=== PATIENT | female | born 1965 | race Caucasian/White ===

== ENCOUNTER 2017-09-16 20:26 | Emergency (ER) | payer OTHER ==
--- NOTE | 2017-09-16 21:24 | RADIOLOGY REPORT (SQ) ---
EXAM DESCRIPTION: CHEST SINGLE VIEW COMPLETED DATE/TIME: 09/16/2017 8:58 pm REASON FOR STUDY: cough COMPARISON: 07/02/2015 NUMBER OF VIEWS: One view. TECHNIQUE: Single frontal radiographic view of the chest acquired. LIMITATIONS: None. FINDINGS: LUNGS AND PLEURA: No opacities, masses or pneumothorax. No pleural effusion. MEDIASTINUM AND HILAR STRUCTURES: No masses. Contour normal. HEART AND VASCULAR STRUCTURES: Heart enlarged without failure. Normal vasculature. Aortic valve rep lacement. BONES: Sternal wires. HARDWARE: None in the chest. OTHER: No other significant finding. IMPRESSION: HEART ENLARGED WITHOUT FAILURE. NO OTHER SIGNIFICANT RADIOGRAPHIC FINDING IN THE CHEST. TECHNICAL DOCUMENTATION: JOB ID: [id number] [employer]- All Rights Reserved
--- NOTE | 2017-09-16 21:37 | ER Document Report ---
ED General - General Chief Complaint: Altered Mental Status Stated Complaint: ALTERED MENTAL STATUS Time Seen by Provider: 09/16/17 20:30 Notes: Patient is a 52-year-old female with a past medical history of insulin- dependent type 2 diabetes who presents with altered mental status and hypoglycemia. Apparently per family who were on scene with the patient she was acting confused. EMS was contacted and they found her blood sugar to be 55. She was given oral glucose solution and had resolution of her altered mental status. At time of arrival patient states she still feels somewhat tired but overall much better than before. She states she thinks she has been eating normally throughout the day today. She is uncertain whether or not she has had hypoglycemic episodes in the past. She notes that she has had a mild, nonproductive cough for the last 2-3 days but states that this has not been particularly bothersome. She denies any dysuria, abdominal pain, chest pain or shortness of breath. She has been taking all insulin as directed. TRAVEL OUTSIDE OF THE [place] IN LAST 30 DAYS: No - Related Data Allergies/Adverse Reactions: Penicillins Allergy (Verified 02/12/16 18:59) Past Medical History - General Information source: Patient - Social History Smoking Status: Never Smoker Frequency of alcohol use: None Drug Abuse: None Lives with: Family Family History: Reviewed & Not Pertinent, DM - Father was diabetic Patient has suicidal ideation: No Patient has homicidal ideation: No - Past Medical History Cardiac Medical History: Reports: Hx Hypertension Endocrine Medical History: Reports: Hx Diabetes Mellitus Type 2 - New diagnosis less than 1-week-old Renal/ Medical History: Denies: Hx Peritoneal Dialysis Review of Systems - Review of Systems Notes: Constitutional: Negative for fever. HENT: Negative for sore throat. Eyes: Negative for visual changes. Cardiovascular: Negative for chest pain. Respiratory: Negative for shortness of breath. Gastrointestinal: Negative for abdominal pain, vomiting or diarrhea. Genitourinary: Negative for dysuria. Musculoskeletal: Negative for back pain. Skin: Negative for rash. Neurological: Negative for headaches, weakness or numbness. 10 point ROS negative except as marked above and in HPI. Physical Exam - Vital signs Vitals: Pulse Resp BP Pulse Ox 54 L 18 129/77 H 100 09/16/17 20:39 09/16/17 20:39 09/16/17 20:39 09/16/17 20:39 Interpretation: Bradycardic Notes: PHYSICAL EXAMINATION: GENERAL: Well-appearing, well-nourished and in no acute distress. HEAD: Atraumatic, normocephalic. EYES: Pupils equal round and reactive to light, extraocular movements intact, sclera anicteric, conjunctiva are normal. ENT: nares patent, oropharynx clear without exudates. Moderately dry mucous membranes. NECK: Normal range of motion, supple without lymphadenopathy LUNGS: Breath sounds clear to auscultation bilaterally and equal. No wheezes rales or rhonchi. HEART: Regular bradycardia without murmurs ABDOMEN: Soft, nontender, normoactive bowel sounds. No guarding, no rebound. No masses appreciated. EXTREMITIES: Normal range of motion, no pitting or edema. No cyanosis. NEUROLOGICAL: No focal neurological deficits. Moves all extremities spontaneously and on command. PSYCH: Normal mood, normal affect. SKIN: Warm, Dry, normal turgor, no rashes or lesions noted. Course - Re-evaluation Re-evalutation: 09/16/17 21:35 Patient presents with some lethargy and confusion now resolved after receiving oral glucose in route after her initial blood sugar was 55. Patient denies any complaints at time of my assessment other than that she has had a cough for the past several days. She is otherwise well in appearance, no acute distress. Physical examination unremarkable. EKG shows sinus bradycardia which patient has a history. Will obtain basic metabolic panel, urinalysis and chest x-ray to evaluate for any etiology of acute hypoglycemia. Will also obtain a troponin as hypoglycemia can be triggered by myocardial infarction. If all these labs are unremarkable and patient continues to be well in appearance will plan for discharge 09/16/17 23:26 Labs unremarkable. Patient has remained asymptomatic. Tolerated oral intake without difficulty. At this time will discharge with return precautions and follow-up recommendations. Verbal discharge instructions given a the bedside and opportunity for questions given. Medication warnings reviewed. Patient is in agreement with this plan and has verbalized understanding of return precautions and the need for primary care follow-up in the next 24-72 hours. - Vital Signs Vital signs: Temp Pulse Resp BP Pulse Ox 97.6 F 78 16 122/75 98 09/16/17 23:39 09/16/17 23:54 09/16/17 23:54 09/16/17 23:54 09/16/17 23:54 - Laboratory Result Diagrams: 09/16/17 21:26 Laboratory results interpreted by me: 09/16/17 09/16/17 21:26 22:42 Glucose 186 H Urine Glucose (UA) 50 H Urine Urobilinogen 2.0 H - Diagnostic Test Radiology reviewed: Image reviewed, Reports reviewed Radiology results interpreted by me: 09/17/17 01:30 Chest x-ray: No acute infiltrate or pneumothorax - EKG Interpretation by Me Additional EKG results interpreted by me: 09/17/17 01:30 Sinus bradycardia. Rate 50. No ST elevations or depressions. QTC is 475. Discharge - Discharge Clinical Impression: Hypoglycemia associated with type 2 diabetes mellitus Altered mental status Qualifiers: Altered mental status type: transient alteration of awareness Qualified Code(s) : R40.4 - Transient alteration of awareness Condition: Good Disposition: HOME, SELF-CARE Additional Instructions: Please return to the emergency room immediately if you experience any concerning symptoms including high fevers, severe headache, chest pain, difficulty breathing, abdominal pain, slurred speech, numbness or weakness in your arms or legs, or any other symptom that concerns you.
[2017-09-16 21:52] LABS: BLOOD UREA NITROGEN 12 mg/dL (7-20); CALCIUM 8.8 mg/dL (8.4-10.2); CREATININE RESULT 0.56 mg/dL (0.52-1.25); GLUCOSE 186 mg/dL (75-110)
[2017-09-16 21:53] LABS: ANION GAP 9 (5-19); CARBON DIOXIDE 25 mmol/L (22-30); CHLORIDE 105 mmol/L (98-107); POTASSIUM 3.8 mmol/L (3.6-5.0); SODIUM 139.1 mmol/L (137-145)
[2017-09-16 23:12] LABS: APPEARANCE,URINE CLEAR; BILIRUBIN,URINE NEGATIVE (NEGATIVE); GLUCOSE, URINE 50 mg/dL (NEGATIVE); KETONES,URINE NEGATIVE (NEGATIVE); LEUKOCYTE ESTERASE,URINE NEGATIVE (NEGATIVE); NITRITE,URINE NEGATIVE (NEGATIVE); PROTEIN,URINE NEGATIVE (NEGATIVE); URINE SPECIFIC GRAVITY 1.016
--- NOTE | 2017-09-16 23:20 | EKG REPORT ---
SEVERITY:- BORDERLINE ECG - SINUS BRADYCARDIA BORDERLINE R WAVE PROGRESSION, ANTERIOR LEADS BORDERLINE T ABNORMALITIES, ANTERIOR LEADS : Confirmed by: Kana Sanchez MD 16-Sep-2017 23:18:42
[2017-09-16 23:55] VITALS: BP 122/75
== END 2017-09-16 23:54 | disposition home or self-care (01) ==
LOC: ER 20:26
DX: E11.649 Type 2 diabetes mellitus with hypoglycemia without coma (principal); R41.82 Altered mental status, unspecified
CPT/HCPCS: 36415; 71010; 80048; 81001; 84484; 93005; 93010; 99285

== ENCOUNTER → 2018-06-10 | Outpatient (CLI) | payer OTHER ==
--- NOTE | 2018-06-10 10:19 | WOMENS IMAGING REPORT ---
EXAM DESCRIPTION: BILAT SCREENING MAMMO W/CAD COMPLETED DATE/TIME: 06/10/2018 9:14 am REASON FOR STUDY: ROUTINE SCREENING MAMMOGRAM Z12.31Z12.31 ENCNTR SCREEN MAMMOGRAM FOR MALIGNANT NE OPLASM OF PEPE COMPARISON: 2011, [id number] TECHNIQUE: Standard craniocaudal and mediolateral oblique views of each breast recorded using digita l acquisition. LIMITATIONS: None. FINDINGS: RIGHT BREAST MASSES: No suspicious masses. CALCIFICATIONS: Clustered calcifications upper inner quadrant about 5 cm deep to the nipple. ARCHITECTURAL DISTORTION: None. DEVELOPING DENSITY: None. ASYMMETRY: None noted. OTHER: No other significant findings. LEFT BREAST MASSES: No suspicious masses. CALCIFICATIONS: No new or suspicious calcifications. ARCHITECTURAL DISTORTION: None. DEVELOPING DENSITY: None. ASYMMETRY: None noted. OTHER: No other significant findings. Read with the assistance of CAD. .[facility] - R2 Cenova Version 1.3 .[facility] Imaging - R2 Cenova Version 1.3 .[facility] Imaging - R2 Cenova Version 2.4 .[facility] - R2 Cenova Version 2.4 .[facility] - R2 Duct Maker Version 9.2 IMPRESSION: Calcifications right breast. BREAST DENSITY: b. There are scattered areas of fibroglandular density. BIRAD: 0 Incomplete: Needs Additional Imaging Evaluation and/or prior Mammograms for Comparison. RECOMMENDATION: RECOMMENDED FOLLOW-UP: True lateral and magnification views right breast. The patient will be contacted for additional imaging. COMMENT: The patient has been notified of the results by letter per SA requirements. Additional no tification policies are in place for contacting patient with suspicious or incomplete findings. Quality ID #[id number]: The [employer] recommends an annual screening mammogram for women aged 40 years or over. This facility utilizes a reminder system to ensure that all patients receive reminder letters, and/or direct phone calls for appointments. This includes reminders for routine scr eening mammograms, diagnostic mammograms, or other Breast Imaging Interventions when appropriate. Th is patient will be placed in the appropriate reminder system. The [employer] (ACR) has developed recommendations for screening MRI of the breast s in certain patient populations, to be used in conjunction with mammography. Breast MRI surveillanc e may be appropriate for women with more than 20% lifetime risk of developing breast cancer as deter mined by genetic testing, significant family history of the disease, or history of mantle radiation f or Hodgkins Disease. ACR Practice Guidelines 2008. TECHNICAL DOCUMENTATION: FINDING NUMBER: (1) ASSESSMENT: (1) JOB ID: [id number] [employer]- All Rights Reserved Reading location - IP/workstation name: [facility]-[email or web address]
== END ==
LOC: WI 08:57
PROVIDERS: ATTEND Nurse Practitioner Family
DX: Z12.31 Encounter for screening mammogram for malignant neoplasm of breast (principal); R92.0 Mammographic microcalcification found on diagnostic imaging of breast
CPT/HCPCS: 77067

== ENCOUNTER → 2018-06-28 | Outpatient (CLI) | payer OTHER ==
--- NOTE | 2018-06-28 14:38 | WOMENS IMAGING REPORT ---
EXAM DESCRIPTION: RIGHT DIAGNOSTIC MAMMO W/CAD COMPLETED DATE/TIME: 06/28/2018 9:04 am REASON FOR STUDY: RT BREAST CALCS R92.0 R92.0 MAMMOGRAPHIC MICROCALCIFICATION FOUND ON DX IMAGING O F COMPARISON: Multiple since 2011 TECHNIQUE: Compression magnification craniocaudal and 90 mediolateral images of the breast recorded with digital acquisition. Right breast 90 mediolateral view LIMITATIONS: None. FINDINGS: BREAST: Right breast MASSES: No suspicious masses. CALCIFICATIONS: 5 cm from the nipple in the upper inner quadrant, 2 to 3 o'clock position right breas t there are calcifications variable in size shape and density which require further evaluation with s tereotactic biopsy, post biopsy clip placement with immediate follow-up two-view mammogram ARCHITECTURAL DISTORTION: None. DEVELOPING DENSITY: None. ASYMMETRY: None noted. OTHER: No other significant findings. Read with the assistance of CAD. .[facility] - R2 Cenova Version 1.3 .[facility] Imaging - R2 Cenova Version 1.3 .[facility] Imaging - R2 Cenova Version 2.4 .[facility] - R2 Cenova Version 2.4 .[facility] - R2 [employer]Th Grade [employer] Teacher Version 9.2 IMPRESSION: Clustered pleomorphic calcifications right breast upper inner quadrant 2 to 3 o'clock po sition 5 cm from the nipple. Stereotactic biopsy recommended BREAST DENSITY: b. There are scattered areas of fibroglandular density. BIRAD: 4 Suspicious. Biopsy should be considered. RECOMMENDATION: RECOMMENDED FOLLOW UP: Right breast stereotactic biopsy for microcalcifications, wit h post biopsy clip placement and immediate follow-up two-view mammogram SPECIFIC INTERVENTION/IMAGING/CONSULTATION RECOMMENDED:Right breast stereotactic biopsy for microcalc ifications COMMUNICATION:Patient notified by letter, I did not have the opportunity to discuss these findings wi th the patient at the time of service COMMENT: The patient has been notified of the results by letter per SA requirements. Additional no tification policies are in place for contacting patient with suspicious or incomplete findings. Quality ID #[id number]: The [employer] recommends an annual screening mammogram for women aged 40 years or over. This facility utilizes a reminder system to ensure that all patients receive reminder letters, and/or direct phone calls for appointments. This includes reminders for routine scr eening mammograms, diagnostic mammograms, or other Breast Imaging Interventions when appropriate. Th is patient will be placed in the appropriate reminder system. The [employer] (ACR) has developed recommendations for screening MRI of the breast s in certain patient populations, to be used in conjunction with mammography. Breast MRI surveillanc e may be appropriate for women with more than 20% lifetime risk of developing breast cancer as deter mined by genetic testing, significant family history of the disease, or history of mantle radiation f or Hodgkins Disease. ACR Practice Guidelines 2008. TECHNICAL DOCUMENTATION: FINDING NUMBER: (1) ASSESSMENT: (1) JOB ID: [id number] [employer]- All Rights Reserved Reading location - IP/workstation name: [facility]-RR
== END ==
LOC: WI 08:53
PROVIDERS: ATTEND Nurse Practitioner Family
DX: R92.0 Mammographic microcalcification found on diagnostic imaging of breast (principal)

== ENCOUNTER → 2018-07-26 | Day surgery (SDC) | payer OTHER ==
[~2018-07-26] MED LIST: LIDOCAINE 1%/EPINEPHRINE INJ 20 ML VIAL ONE
--- NOTE | 2018-07-29 09:19 | RADIOLOGY REPORT (SQ) ---
EXAM DESCRIPTION: STEREO BREAST BX; RIGHT DIG DX MAMMO NO CHG COMPLETED DATE/TIME: 07/26/2018 12:31 pm; 07/26/2018 12:32 pm REASON FOR STUDY: R92.0 MAMMOGRAPHIC MICROCALCIFICATION FOUND ON DIAGNOSTIC IMAGING OF BREAST; RT BR EAST POST OP R92.0 MAMMOGRAPHIC MICROCALCIFICATION FOUND ON DX IMAGING OF COMPARISON: 06/28/2018 and 06/10/2018. TECHNIQUE: Vacuum-assisted stereotactic-guided biopsy of the lesion in the right breast. Serial prog ress stereotactic and single digital images acquired. PROCEDURE: The procedure was discussed with the patient, including possible complications such as bleeding, infection, nondiagnostic sample or possible findings such as atypical ductal hyperplasia wh ich would require additional surgery. Possible clip placement was explained. The patient agreed t o the procedure. The patient was placed prone on the stereotactic table. The lesion in the breast was localized ster eotactically. The skin of the breast was prepped in sterile fashion. Superficial and deep local an esthesia was provided. A small incision was made in the skin and the biopsy probe was advanced to t he target. Using the vacuum-assisted core biopsy device, multiple core specimens were obtained. Continuous low dose infusion of local anesthesia was used during the procedure. A specimen radiograph was obtained. The radiograph demonstrated calcifications in the biopsy tissue. Using [id number] technique an hourglass clip was deployed at the biopsy site. Mammograph ic image confirmed presence of the clip. The probe was then removed and hemostasis obtained with m anual compression. A compression bandage was applied. Postoperative instructions were explained to the patient. POST-PROCEDURE TWO VIEW DIGITAL MAMMOGRAM: An additional two view mamm[facility]. Marker clip is present at the biopsy site. LIMITATIONS: None. FINDINGS: PATHOLOGY: Fragments of fibroadenoma with sclerosis and calcifications. Negative for atyp ia or malignancy. CONCORDANT: Yes. POST PROCEDURE MAMMOGRAMS FOR MARKER PLACEMENT: Yes IMPRESSION: SUCCESSFUL STEREOTACTIC-GUIDED BIOPSY OF THE LESION IN THE RIGHT BREAST. BIOPSY RESULT S ARE CONCORDANT WITH IMAGING FINDINGS. FOLLOW-UP: PATIENT CAN RESUME ROUTINE SCREENING SCHEDULE DETERMINED BY HER AND HER PHP. NOTIFICATION: AN ATTEMPT WAS MADE TO CONTACT THE PATIENT BUT THE PHONE CALL WENT TO VOICEM[employer]. THE [facility] PHP HAS BEEN NOTIFIED OF THE RESULTS. HE/SHE WILL DISCUSS THE RESULTS WITH THE PATIENT. COMMENT: Patient medication list reviewed: Yes- Quality ID# [id number]:Eligible professional attests to doc umenting in the medical record they obtained, updated, or reviewed the patient's current medications. TECHNICAL DOCUMENTATION: JOB ID: [id number] [employer]- All Rights Reserved Reading location - IP/workstation name: [email or web address]
== END ==
LOC: RAD 09:28 → EDSTATUS 10:30
PROVIDERS: ATTEND Nurse Practitioner Family
DX: R92.0 Mammographic microcalcification found on diagnostic imaging of breast (principal); D24.1 Benign neoplasm of right breast; N60.39 Fibrosclerosis of unspecified breast
CPT/HCPCS: 88305 ×2; 88342; 19081; J3490

== ENCOUNTER 2019-01-01 03:47 | Emergency (ER) | payer OTHER ==
[2019-01-01] MEDS ORDERED: LEVALBUTEROL HCL NEB 1.25 MG/3 ML AMPUL NEB ONE (05:03)
--- NOTE | 2019-01-01 05:05 | ER Document Report ---
Doctor's Note Notes: 01/01/19 05:04 I performed a triage evaluation the patient. Patient is a 53-year-old female who presents with complaint of difficulty breathing. Is been ongoing for a few days. She was diagnosed with flu last week. This was via flu swab. She was given sounds to be the new anti-flu medication. She said she was given a prescription for 2 pills that she takes it once. She denies history of asthma. No history of smoking. No history of COPD. No history of respiratory issues. She did have fevers early in the week but her fevers have since resolved. She presents today because she has had increased worse in her breathing as well as some chest tightness. No chest pain. She is in atrial fibrillation. She has a history of atrial fibrillation. Rate is between 95-120 on the monitor. She does have some mild tachypnea. Lung coffman have may be just very slight wheezing but otherwise she has good air exchange on initial lung auscultation. I have ordered Xopenex treatment. 40 EKG and blood work. Of ordered chest x- ray. Patient is 100% on room air at this time. Dictation of this chart was performed using voice recognition software; therefore, there may be some unintended grammatical errors. 01/01/19 05:05
[2019-01-01 05:18] LABS: ABSOLUTE EOSINOPHILS # (AUTO) 0.2 10^3/uL (0.0-0.6); ABSOLUTE LYMPHOCYTES (AUTO) 1.2 10^3/uL (0.5-4.7); ABSOLUTE MONOCYTES (AUTO) 0.5 10^3/uL (0.1-1.4); ABSOLUTE NEUT (AUTO) 4.8 10^3/uL (1.7-8.2); BASOPHILS % (AUTO) 0.7 % (0-2); EOSINOPHILS % (AUTO) 2.4 % (0-6); HEMATOCRIT 34.8 % (36.0-47.0); HEMOGLOBIN 11.8 g/dL (12.0-15.5); LYMPHOCYTES % (AUTO) 17.6 % (13-45); MEAN CORPUSCULAR HEMOGLOBIN 31.1 pg (27.0-33.4); MEAN CORPUSCULAR HGB CONC 33.9 g/dL (32.0-36.0); MEAN CORPUSCULAR VOLUME 92 fl (80-97); MONOCYTES % (AUTO) 7.9 % (3-13); PLATELET COUNT 231 10^3/uL (150-450); RED BLOOD COUNT 3.79 10^6/uL (3.72-5.28); RED CELL DISTRIBUTION WIDTH 15.1 % (11.5-14.0); SEGMENTED NEUTROPHILS % (AUTO) 71.4 % (42-78); TOTAL CELLS COUNTED % (AUTO) 100 %; WHITE BLOOD COUNT 6.8 10^3/uL (4.0-10.5)
[2019-01-01 05:39] LABS: ALANINE AMINOTRANSFERASE 53 U/L (9-52); ALBUMIN 3.6 g/dL (3.5-5.0); ALKALINE PHOSPHATASE 172 U/L (38-126); ANION GAP 8 (5-19); ASPARTATE AMINO TRANSFERASE 90 U/L (14-36); BILIRUBIN,DIRECT 0.2 mg/dL (0.0-0.4); BILIRUBIN,TOTAL 0.3 mg/dL (0.2-1.3); BLOOD UREA NITROGEN 10 mg/dL (7-20); CALCIUM 9.7 mg/dL (8.4-10.2); CARBON DIOXIDE 26 mmol/L (22-30); CHLORIDE 109 mmol/L (98-107); GLUCOSE 242 mg/dL (75-110); POTASSIUM 4.2 mmol/L (3.6-5.0); SODIUM 142.7 mmol/L (137-145); TOTAL PROTEIN 6.1 g/dL (6.3-8.2)
--- NOTE | 2019-01-01 06:18 | RADIOLOGY REPORT (SQ) ---
EXAM DESCRIPTION: XR CHEST 1 VIEW COMPLETED DATE/TME: 01/01/2019 05:02 CLINICAL HISTORY: 53 years, Female, dyspnea COMPARISON: None. NUMBER OF VIEWS: One TECHNIQUE: AP view the chest LIMITATIONS: None. FINDINGS: There is mild pulmonary vascular congestion. The heart is enlarged with changes of valve replacement. There is no pneumothorax or pleural effusion. There is no acute fracture. IMPRESSION: Pulmonary vascular congestion with cardiomegaly copyright 2010 [employer]- All Rights Reserved
[2019-01-01 06:36] LABS: INTERNATIONAL RATION (INR) 2.47; PROTHROMBIN TIME 27.9 SEC (11.4-15.4)
[2019-01-01 06:45] LABS: CREATINE KINASE MB 0.94 ng/mL (<4.55); NT PRO BNP 4740 pg/mL (5-900)
[2019-01-01 06:49] LABS: TROPONIN I < 0.012 ng/mL
--- NOTE | 2019-01-01 07:00 | ER Document Report ---
ED General - General Chief Complaint: Breathing Difficulty Stated Complaint: TROUBLE BREATHING Time Seen by Provider: 01/01/19 05:02 Primary Care Provider: DENA SAHA FNP-C [Primary Care Provider] - Follow up as needed TRAVEL OUTSIDE OF THE [place] IN LAST 30 DAYS: No - HPI Notes: Patient presents emergency department for evaluation of difficulty breathing. In the last several weeks she was diagnosed with influenza. She was treated with some sort of antibiotic influenza medication. She is unsure what it was. She states she is just never felt good since then. Over the last 3 days she started to feel more short of breath. This is worsened by laying down. She states she is taking her medications as prescribed. She does have a history of atrial fibrillation, valve replacement. She is unsure when her last INR was checked. She denies any fevers at this time, states she did have a fever last week. No nausea or vomiting. Mildly diminished appetite. She states she has chronic diarrhea secondary to her metformin. This is unchanged. She denies any urinary symptoms. She continues to have a cough that is only intermittently productive. She states her chest and her abdomen feel heavy from coughing. - Related Data Allergies/Adverse Reactions: Penicillins Allergy (Verified 01/01/19 05:24) Past Medical History - General Information source: Patient - Social History Smoking Status: Never Smoker Family History: Reviewed & Not Pertinent, DM - Father was diabetic Patient has suicidal ideation: No Patient has homicidal ideation: No - Past Medical History Cardiac Medical History: Reports: Hx Atrial Fibrillation, Hx Hypertension Endocrine Medical History: Reports: Hx Diabetes Mellitus Type 2 Renal/ Medical History: Denies: Hx Peritoneal Dialysis Past Surgical History: Reports: Hx Cardiac Surgery - Valve replacement, Hx Cholecystectomy Review of Systems - Review of Systems Constitutional: See HPI EENT: No symptoms reported Cardiovascular: See HPI Respiratory: See HPI Gastrointestinal: No symptoms reported Genitourinary: No symptoms reported Musculoskeletal: No symptoms reported Skin: No symptoms reported Neurological/Psychological: No symptoms reported Physical Exam - Vital signs Vitals: Temp Pulse Resp BP Pulse Ox 97.6 F 135 H 20 163/98 H 96 01/01/19 03:51 01/01/19 03:51 01/01/19 03:51 01/01/19 03:51 01/01/19 03:51 - Notes Notes: Vital signs reviewed, please refer to chart. Patient is normocephalic, atraumatic. Pupils equal round, reactive to light. Neck is supple without meningismus. Heart is regular with mechanical click of valve. Lungs are clear to auscultation bilaterally. Abdomen is soft, nontender, normoactive bowel sounds throughout. Extremities without cyanosis, clubbing. Trace pitting edema noted at the ankles bilaterally, no posterior calf tenderness. Peripheral pulses are equal. Skin is warm and dry. Patient is awake, alert, neurological exam is nonfocal. Course - Re-evaluation Re-evalutation: 01/01/19 06:59 Patient presents emergency department for evaluation. She was initially evaluated by the for and here in the department, given breathing treatments. She states she continues to feel slightly improved. She has not yet taken her medications this morning. Given her history of valve replacement and the reported orthopnea, I did order proBNP, cardiac enzymes. Her EKG does not reveal any acute ST changes. Chest x-ray does show some pulmonary vascular congestion. We will continue to follow. 01/01/19 08:35 Patient's laboratory investigation revealed a moderately elevated proBNP. It is actually less than it was in the past, however. She continues to maintain good oxygen saturation on room air. She is not wheezing at the time of my evaluation. I do not believe this is necessarily related to her influenza. Her INR is unremarkable. Her blood pressure and heart rate were slightly elevated here. She has not yet taken her morning medications. I spoke to her polisher apprentice, Dr. Adkins. We discussed the fact that she is not in any sort of diuretics. He is comfortable with me treating her with Lasix 20 mg daily. This medication was started here. She is told to have a take her regular medications as prescribed. She is to follow-up with Dr. Adkins in 1-2 weeks. She is to return to the emergency department with worsening or new concerning symptoms of any sort. - Vital Signs Vital signs: Temp Pulse Resp BP Pulse Ox 97.6 F 135 H 18 162/114 H 95 01/01/19 03:51 01/01/19 03:51 01/01/19 07:01 01/01/19 07:01 01/01/19 07:01 - Laboratory Result Diagrams: 01/01/19 05:06 01/01/19 05:06 Laboratory results interpreted by me: 01/01/19 01/01/19 01/01/19 05:06 05:06 05:06 Hgb 11.8 L Hct 34.8 L RDW 15.1 H PT 27.9 H Chloride 109 H Glucose 242 H AST 90 H ALT 53 H Alkaline Phosphatase 172 H NT-Pro-B Natriuret Pep Total Protein 6.1 L 01/01/19 05:06 Hgb Hct RDW PT Chloride Glucose AST ALT Alkaline Phosphatase NT-Pro-B Natriuret Pep 4740 H Total Protein - Diagnostic Test Radiology reviewed: Reports reviewed - Pulmonary vascular congestion - EKG Interpretation by Me Additional EKG results interpreted by me: 01/01/19 06:59 Atrial fibrillation with a rate of 102 bpm. PVC. Normal axis and intervals, nonspecific ST changes, no acute changes concerning for ischemia or infarction. Discharge - Discharge Clinical Impression: Pulmonary edema, CHF (congestive heart failure) Condition: Stable Disposition: HOME, SELF-CARE Instructions: Congestive Heart Failure ([facility]) Additional Instructions: Take your Lasix as directed, starting tomorrow. Take your regular medications at home as prescribed. Follow-up with Dr. Adkins in 1-2 weeks. Return to the emergency department with worsening or new concerning symptoms of any sort. Referrals: DENA SAHA FNP-C [Primary Care Provider] - Follow up as needed
[2019-01-01] MEDS ORDERED: FUROSEMIDE 20 MG TABLET PO ONE (08:32)
--- NOTE | 2019-01-01 08:34 | EKG REPORT ---
SEVERITY:- ABNORMAL ECG - ATRIAL FIBRILLATION/FLUTTER VENTRICULAR PREMATURE COMPLEX NONSPECIFIC ST-T CHANGES- INFERIOR LEADS : Confirmed by: Kana Sanchez MD 01-Jan-2019 08:33:09
[2019-01-01 08:50] VITALS: BP 154/111
== END 2019-01-01 08:57 | disposition home or self-care (01) ==
LOC: ER 03:47
DX: J81.1 Chronic pulmonary edema (principal); I50.9 Heart failure, unspecified; R06.02 Shortness of breath; R63.0 Anorexia; R19.7 Diarrhea, unspecified; I48.91 Unspecified atrial fibrillation; Z79.84 Long term (current) use of oral hypoglycemic drugs
CPT/HCPCS: 93005; 94640; 99285; 36415; 82553; 82550; 83735; 85025; 85610; 80053; 84484; 83880; 71045; 93010; J3490

== ENCOUNTER 2019-01-31 19:07 | Emergency (ER) | payer OTHER ==
[2019-01-31 20:01] VITALS: BP 123/77
== END 2019-01-31 21:50 | disposition left against medical advice (07) ==
LOC: ER 19:07
DX: Z53.21 Procedure and treatment not carried out due to patient leaving prior to being seen by health care provider (principal)

== ENCOUNTER 2019-03-06 06:17 | Emergency (ER) | payer OTHER ==
[2019-03-06] MEDS ORDERED: ONDANSETRON HCL INJ/PF 4 MG/2 ML SDV IV ONE (06:58)
[2019-03-06] MEDS ORDERED: NORMAL SALINE 1000 ML 1,000 ML IV ONE (06:59)
[2019-03-06] MEDS ORDERED: MORPHINE SULFATE 10 MG/ML INJ IV ONE (06:59)
[2019-03-06 07:12] LABS: INTERNATIONAL RATION (INR) 2.13; PROTHROMBIN TIME 24.9 SEC (11.4-15.4)
[2019-03-06 07:14] LABS: ABSOLUTE EOSINOPHILS # (AUTO) 0.2 10^3/uL (0.0-0.6); ABSOLUTE LYMPHOCYTES (AUTO) 1.3 10^3/uL (0.5-4.7); ABSOLUTE MONOCYTES (AUTO) 0.8 10^3/uL (0.1-1.4); ABSOLUTE NEUT (AUTO) 6.6 10^3/uL (1.7-8.2); BASOPHILS % (AUTO) 0.3 % (0-2); EOSINOPHILS % (AUTO) 1.9 % (0-6); HEMATOCRIT 40.4 % (36.0-47.0); HEMOGLOBIN 13.9 g/dL (12.0-15.5); LYMPHOCYTES % (AUTO) 14.5 % (13-45); MEAN CORPUSCULAR HEMOGLOBIN 30.1 pg (27.0-33.4); MEAN CORPUSCULAR HGB CONC 34.5 g/dL (32.0-36.0); MEAN CORPUSCULAR VOLUME 88 fl (80-97); MONOCYTES % (AUTO) 9.1 % (3-13); PLATELET COUNT 187 10^3/uL (150-450); RED BLOOD COUNT 4.62 10^6/uL (3.72-5.28); RED CELL DISTRIBUTION WIDTH 14.4 % (11.5-14.0); SEGMENTED NEUTROPHILS % (AUTO) 74.2 % (42-78); TOTAL CELLS COUNTED % (AUTO) 100 %; WHITE BLOOD COUNT 8.9 10^3/uL (4.0-10.5)
[2019-03-06 07:58] LABS: ALANINE AMINOTRANSFERASE 19 U/L (9-52); ALBUMIN 4.1 g/dL (3.5-5.0); ALKALINE PHOSPHATASE 152 U/L (38-126); ANION GAP 13 (5-19); ASPARTATE AMINO TRANSFERASE 20 U/L (14-36); BILIRUBIN,DIRECT 0.3 mg/dL (0.0-0.4); BILIRUBIN,TOTAL 0.8 mg/dL (0.2-1.3); BLOOD UREA NITROGEN 10 mg/dL (7-20); CARBON DIOXIDE 28 mmol/L (22-30); CHLORIDE 97 mmol/L (98-107); GLUCOSE 285 mg/dL (75-110); LIPASE 106.8 U/L (23-300); POTASSIUM 4.4 mmol/L (3.6-5.0); SODIUM 137.8 mmol/L (137-145); TOTAL PROTEIN 7.5 g/dL (6.3-8.2)
[2019-03-06 09:06] LABS: APPEARANCE,URINE CLEAR; BILIRUBIN,URINE NEGATIVE (NEGATIVE); COLOR,URINE YELLOW; GLUCOSE, URINE >=500 mg/dL (NEGATIVE); KETONES,URINE 80 mg/dL (NEGATIVE); LEUKOCYTE ESTERASE,URINE NEGATIVE (NEGATIVE); NITRITE,URINE NEGATIVE (NEGATIVE); PROTEIN,URINE 100 mg/dL (NEGATIVE); URINE SPECIFIC GRAVITY 1.033; UROBILINOGEN,URINE NEGATIVE mg/dL (<2.0)
[2019-03-06] MEDS: MAGNESIUM SULFATE/D5W 1 GM/100 ML RTUPB IV SCH ×2 (09:45→10:46)
[2019-03-06] MEDS ORDERED: KETOROLAC TROMETHAMINE INJ/PF 30 MG/1 ML SDV IV ONE (09:57)
--- NOTE | 2019-03-06 12:07 | RADIOLOGY REPORT (SQ) ---
EXAM DESCRIPTION: CHEST 2 VIEWS COMPLETED DATE/TIME: 03/06/2019 11:57 am REASON FOR STUDY: fever, cough COMPARISON: 01/01/2019. EXAM PARAMETERS: NUMBER OF VIEWS: two views TECHNIQUE: Digital Frontal and Lateral radiographic views of the chest acquired. RADIATION DOSE: NA LIMITATIONS: none FINDINGS: LUNGS AND PLEURA: No opacities, masses or pneumothorax. No pleural effusion. MEDIASTINUM AND HILAR STRUCTURES: No masses or contour abnormalities. HEART AND VASCULAR STRUCTURES: Heart normal size. No evidence for failure. BONES: No acute findings. HARDWARE: Sternotomy wires and prosthetic valve. OTHER: No other significant finding. IMPRESSION: NO ACUTE RADIOGRAPHIC FINDING IN THE CHEST. TECHNICAL DOCUMENTATION: JOB ID: [id number] [employer]- All Rights Reserved Reading location - IP/workstation name: [email or web address]
--- NOTE | 2019-03-06 13:09 | ER Document Report ---
ED General - General Chief Complaint: Abdominal Pain Stated Complaint: ABDOMINAL PAIN Time Seen by Provider: 03/06/19 06:43 Primary Care Provider: DENA SAHA FNP-C [Primary Care Provider] - Follow up as needed TRAVEL OUTSIDE OF THE [place] IN LAST 30 DAYS: No - HPI Notes: Patient is a 53-year-old female who presents the emergency department for evaluation of nausea, vomiting, diarrhea, abdominal pain. Is on her right side. She states this worsened by movement, nothing seems to make it better. Emesis has been nonbloody, nonbilious. She is only had 2 episodes in the last 24 hours. She states she felt febrile earlier in the week but has not had a fever in the last 24 hours. She never took an actual temperature. She also had multiple episodes of watery diarrhea throughout the week. She states she has not had any in the last 24 hours. She denies any exotic travel. No recent antibiotic therapy. She states she is taking her medications as prescribed. - Related Data Allergies/Adverse Reactions: Penicillins Allergy (Verified 01/31/19 19:20) Past Medical History - General Information source: Patient - Social History Smoking Status: Current Every Day Smoker Family History: Reviewed & Not Pertinent, DM - Father was diabetic Patient has suicidal ideation: No Patient has homicidal ideation: No - Past Medical History Cardiac Medical History: Reports: Hx Atrial Fibrillation, Hx Hypertension Endocrine Medical History: Reports: Hx Diabetes Mellitus Type 2 Renal/ Medical History: Denies: Hx Peritoneal Dialysis Past Surgical History: Reports: Hx Cardiac Surgery - Valve replacement, Hx Cholecystectomy Review of Systems - Review of Systems Constitutional: See HPI EENT: No symptoms reported Cardiovascular: No symptoms reported Respiratory: No symptoms reported Gastrointestinal: See HPI Genitourinary: No symptoms reported Female Genitourinary: No symptoms reported Musculoskeletal: No symptoms reported Skin: No symptoms reported Neurological/Psychological: No symptoms reported Physical Exam - Vital signs Vitals: Temp Pulse Resp BP Pulse Ox 98.7 F 99 20 140/91 H 98 03/06/19 06:32 03/06/19 06:32 03/06/19 06:32 03/06/19 06:32 03/06/19 06:32 - Notes Notes: Vital signs reviewed, please refer to chart. Head is normocephalic, atraumatic. Pupils equal round, reactive to light. Neck is supple without meningismus. Heart is regular with a mechanical click of artificial heart valve. Lungs are clear to auscultation bilaterally. Abdomen is soft, minimal tenderness to right lateral abdominal wall, normoactive bowel sounds throughout. Extremities without cyanosis, clubbing. Posterior calves are nontender. Peripheral pulses are equal. Skin is warm and dry. Patient is awake, alert, neurological exam is nonfocal. Course - Re-evaluation Re-evalutation: 03/06/19 13:10 Patient presents to the emergency department for evaluation. She was placed on a desk monitor laboratory investigations were obtained. Her desk monitor showed frequent PVCs. Because of this magnesium level was added. Laboratory investigations were remarkable for a hypomagnesemia which was replaced IV. Otherwise no significant problems were identified. Chest x-ray was unremarkable. Serial abdominal exams remained nonsurgical. Findings were explained to the patient. She had no emesis or diarrhea while here. I will send her home with antiemetics. I think it is likely that this patient's abdominal pain is musculoskeletal in nature. I will then send her home with muscle relaxers. She has to avoid anti-inflammatories secondary to her Coumadin. She is to return to the emergency department for worsening or new concerning symptoms, otherwise follow-up this week with her primary care physician. - Vital Signs Vital signs: Temp Pulse Resp BP Pulse Ox 98.7 F 99 20 140/91 H 98 03/06/19 06:32 03/06/19 06:32 03/06/19 06:32 03/06/19 06:32 03/06/19 06:32 - Laboratory Result Diagrams: 03/06/19 06:25 03/06/19 06:25 Laboratory results interpreted by me: 03/06/19 03/06/19 03/06/19 06:25 06:25 06:25 RDW 14.4 H PT 24.9 H Chloride 97 L Glucose 285 H Magnesium Alkaline Phosphatase 152 H Urine Protein Urine Glucose (UA) Urine Ketones Urine Ascorbic Acid 03/06/19 03/06/19 06:25 08:08 RDW PT Chloride Glucose Magnesium 1.2 L* Alkaline Phosphatase Urine Protein 100 H Urine Glucose (UA) >=500 H Urine Ketones 80 H Urine Ascorbic Acid 40 H - Diagnostic Test Radiology reviewed: Reports reviewed Radiology results interpreted by me: 03/06/19 13:11 Chest X-Ray 03/06/19 11:05 IMPRESSION: NO ACUTE RADIOGRAPHIC FINDING IN THE CHEST. Discharge - Discharge Clinical Impression: Diarrhea, Hypomagnesemia Abdominal pain Qualifiers: Abdominal location: unspecified location Qualified Code(s): R10.9 - Unspecified abdominal pain Nausea and vomiting Qualifiers: Vomiting Intractability: non-intractable Condition: Stable Disposition: HOME, SELF-CARE Instructions: Abdominal Pain ([facility]), Antinausea Medication ([facility]), Diarrhea, Nonspecific ([facility]) Additional Instructions: Stay hydrated with small, frequent sips of fluids. Zofran as needed for nausea. Follow-up with primary care this week. Return to the emergency department with worsening or new concerning symptoms of any sort. Referrals: DENA SAHA FNP-C [Primary Care Provider] - Follow up as needed
[2019-03-06 13:34] VITALS: BP 117/76
--- NOTE | 2019-03-08 11:21 | EKG REPORT ---
SEVERITY:- ABNORMAL ECG - SINUS TACHYCARDIA INTERPOLATED VENTRICULAR PREMATURE COMPLEX : Confirmed by: Sharmila Sapp 08-Mar-2019 11:21:20
== END 2019-03-06 13:41 | disposition home or self-care (01) ==
LOC: ER 06:17
DX: R19.7 Diarrhea, unspecified (principal); E83.42 Hypomagnesemia; R10.9 Unspecified abdominal pain; R11.2 Nausea with vomiting, unspecified; F17.200 Nicotine dependence, unspecified, uncomplicated; I48.91 Unspecified atrial fibrillation; I10 Essential (primary) hypertension; E11.9 Type 2 diabetes mellitus without complications; Z88.0 Allergy status to penicillin; Z90.49 Acquired absence of other specified parts of digestive tract; Z95.4 Presence of other heart-valve replacement
CPT/HCPCS: 93005; 99284; 96361; 96375; 96365; 36415; 83690; 83735; 85025; 85610; 80053; 81001; 71046; 93010; J1885; J2270; J3475; J2405; J7030

== ENCOUNTER → 2019-03-08 | Outpatient (CLI) | payer OTHER ==
--- NOTE | 2019-03-08 12:09 | RADIOLOGY REPORT (SQ) ---
EXAM DESCRIPTION: KUB COMPLETED DATE/TIME: 03/08/2019 11:22 am REASON FOR STUDY: RIGHT LOWER QUADRANT PAIN R10.31 RIGHT LOWER QUADRANT PAIN COMPARISON: 02/03/2015 NUMBER OF VIEWS: One view. TECHNIQUE: Supine radiographic image of the abdomen acquired. LIMITATIONS: None. FINDINGS: BOWEL GAS PATTERN: Normal bowel gas pattern. No dilated loops. CALCIFICATIONS: No suspicious calcifications. SOFT TISSUES: No gross mass or suggestion of organomegaly. HARDWARE: There are surgical clips in the right upper quadrant and overlying the pelvis. BONES: No acute fracture. No worrisome bone lesions. OTHER: No other significant finding. IMPRESSION: NO RADIOGRAPHIC EVIDENCE FOR ACUTE ABDOMINAL DISEASE. TECHNICAL DOCUMENTATION: JOB ID: [id number] [employer]- All Rights Reserved Reading location - IP/workstation name: [email or web address]
== END ==
LOC: OD 10:54
PROVIDERS: ATTEND Nurse Practitioner Family
DX: R10.31 Right lower quadrant pain (principal)
CPT/HCPCS: 74018

== ENCOUNTER 2019-06-09 13:23 | Emergency (ER) | payer OTHER ==
--- NOTE | 2019-06-09 14:02 | ER Document Report ---
ED Medical Screen (RME) - General Chief Complaint: Shortness Of Breath Stated Complaint: SHORTNESS OF BREATH Time Seen by Provider: 06/09/19 13:51 Primary Care Provider: DENA SAHA FNP-C [Primary Care Provider] - Follow up as needed Mode of Arrival: Ambulatory Information source: Patient Notes: 54-year-old female presented to ED from the radiology department after she had a CTA of the chest today. Her primary care doctor sent to to the CT to get checked for pulmonary emboli. The CT does show bilateral pleural effusions right greater than left. Bilateral groundglass opacities most likely pulmonary edema. No pulmonary emboli. Reflux into the hepatic vein consistent with right-sided heart failure. She states she had shortness of breath and pain for 3 weeks worse when she goes up and down her stairs. She does have a history of A. fib with a mechanical heart valve. She also has a history of diabetes and is on Coumadin for that and did have a level drawn today. She also has had a gallbladder removed. Patient is alert oriented respirations regular unlabored speaking in full sentences. She does have her pulse is going from 60-80 153 O2 sat was 100% pulse very irregular. I have discussed the vital signs and the CT results with the charge nurse and she will be going TRAVEL OUTSIDE OF THE [place] IN LAST 30 DAYS: No - Related Data Allergies/Adverse Reactions: Penicillins Allergy (Verified 06/09/19 13:29) Past Medical History - Past Medical History Cardiac Medical History: Reports: Hx Atrial Fibrillation, Hx Hypertension Endocrine Medical History: Reports: Hx Diabetes Mellitus Type 2 Renal/ Medical History: Denies: Hx Peritoneal Dialysis Past Surgical History: Reports: Hx Cardiac Surgery - Valve replacement, Hx Dbebie cystectomy Physical Exam - Vital signs Vitals: Temp Pulse Resp BP Pulse Ox 97.9 F 63 18 124/107 H 98 06/09/19 13:35 06/09/19 13:35 06/09/19 13:35 06/09/19 13:35 06/09/19 13:35 Course - Vital Signs Vital signs: Temp Pulse Resp BP Pulse Ox 97.9 F 63 18 123/87 H 98 06/09/19 13:35 06/09/19 13:35 06/09/19 13:35 06/09/19 13:49 06/09/19 13:35 Doctor's Discharge - Discharge Referrals: DENA SAHA, [employer] [Primary Care Provider] - Follow up as needed
--- NOTE | 2019-06-09 14:12 | ER Document Report ---
ED General - General Chief Complaint: Shortness Of Breath Stated Complaint: SHORTNESS OF BREATH Time Seen by Provider: 06/09/19 13:51 Primary Care Provider: DENA SAHA FNP-C [Primary Care Provider] - Follow up as needed Mode of Arrival: Ambulatory Notes: Patient is a 54-year-old female with atrial fibrillation that presents to the emergency department for chief complaint of shortness of breath. Patient states she is been having increased shortness of breath for the past few weeks, and intermittently will have some chest pressure, but none at this time. She states that she has atrial fibrillation has been in heart failure before as well, she does take metoprolol but did not take it today, she is been feeling more palpitations recently, and her shortness of breath is particularly worse with any exertion. She had outpatient CT angiogram today to evaluate for PE from her primary care, which was negative for that, but did demonstrate a pleural effusions, and pulmonary edema and concern for right heart failure. She is not currently on any diuretics. She is on Coumadin, and has a mechanical heart valve. At this time at rest, she denies feeling overtly shortness of breath, denies having any nausea, vomiting, diaphoresis, fevers, chills, night sweats, abdominal pain or diarrhea recently. Past Medical History: Atrial fibrillation, hypertension, hyperlipidemia Past Surgical History: Mechanical heart valve Social History: Denies tobacco, alcohol or drug use. Family History: Reviewed and noncontributory for presenting illness Allergies: Reviewed, see documented allergy list. REVIEW OF SYSTEMS: Other than noted above, the 12 point review of systems was reviewed with the patient and were negative, all pertinent findings are included in the HPI. PHYSICAL EXAMINATION: Vital signs reviewed, nursing noted reviewed. GENERAL: Well-appearing, well-nourished and in no acute distress. HEAD: Atraumatic, normocephalic. EYES: Eyes appear normal, extraocular movements intact, sclera anicteric, conjunctiva are normal. ENT: nares patent, oropharynx clear without exudates. Moist mucous membranes. NECK: Normal range of motion, supple without lymphadenopathy, no JVD. LUNGS: Faint rales noted at the bases bilaterally, but no acute respiratory distress, no wheezing. HEART: Heart rate tachycardic, irregular rhythm, 4/6 systolic murmur, mechanical valve is auscultated as well. ABDOMEN: Soft, nontender, normoactive bowel sounds. No rebound, guarding, or rigidity. No masses appreciated. EXTREMITIES: Nontender, good range of motion, trace pitting edema at the ankles bilaterally, equal, no erythema. NEUROLOGICAL: No focal neurological deficits. Moves all extremities spontaneously Motor and sensory grossly intact on exam. PSYCH: Normal mood, normal affect. SKIN: Warm, Dry, normal turgor, no rashes or lesions noted on exposed skin TRAVEL OUTSIDE OF THE [place] IN LAST 30 DAYS: No - Related Data Allergies/Adverse Reactions: Penicillins Allergy (Verified 06/09/19 13:29) Past Medical History - General Information source: Patient - Social History Smoking Status: Never Smoker Chew tobacco use (# tins/day): No Frequency of alcohol use: Rare Drug Abuse: None Family History: Reviewed & Not Pertinent, DM Patient has suicidal ideation: No Patient has homicidal ideation: No - Past Medical History Cardiac Medical History: Reports: Hx Atrial Fibrillation, Hx Hypertension Endocrine Medical History: Reports: Hx Diabetes Mellitus Type 2 Renal/ Medical History: Denies: Hx Peritoneal Dialysis Past Surgical History: Reports: Hx Cardiac Surgery - Valve replacement, Hx Cholecystectomy Physical Exam - Vital signs Vitals: Temp Pulse Resp BP Pulse Ox 97.9 F 63 18 124/107 H 98 06/09/19 13:35 06/09/19 13:35 06/09/19 13:35 06/09/19 13:35 06/09/19 13:35 Course - Re-evaluation Re-evalutation: Patient seen and examined vital signs reviewed. Laboratory data and/or imaging were ordered as appropriate for the patient's presenting symptoms and complaint, with consideration of any critical or life threatening conditions that may be associated with their obtained history and exam as noted above. Patient was treated with IV metoprolol 5 mg, and p.o. metoprolol succinate 50 mg, and IV Lasix. Results were reviewed when available and demonstrated elevated BNP, her CT imaging did demonstrate pulmonary edema with some pleural effusions, this was reviewed, and her blood work was otherwise unremarkable, no renal impairment. Patient initially was in atrial fibrillation with rapid ventricular response, with a heart rate in the 130s to 140s, she was treated as noted above, her heart rate improved to the 90s, to low 100s, and her blood pressure remained stable. She was feeling improved, and at this point I feel the patient can be discharged home with a prescription for Lasix and increase her metoprolol to 75 mg daily, and follow-up with her primary care for dose adjustments if needed. She is advised if her symptoms do not improve, to return to the emergency department to be reevaluated. Evaluation was most consistent with atrial fibrillation with rapid ventricular response, acute on chronic heart failure. Results were discussed with the patient at this point, after careful consideration I feel that that patient can be discharged from the emergency department, the patient was educated treatments and reasons to return to the emergency department based on their presumed diagnosis as noted above, they were advised to followup with a primary care physician in 2-3 days. Patient was agreeable to plan of care. *Note is created using voice recognition software and may contain spelling, syntax or grammatical errors. Laboratory 06/09/19 06/09/19 06/09/19 14:10 14:10 14:10 WBC 5.7 RBC 4.16 Hgb 12.7 Hct 38.5 MCV 93 MCH 30.6 MCHC 33.1 RDW 15.5 H Plt Count 198 Lymph % (Auto) 19.9 Moody % (Auto) 7.7 Eos % (Auto) 2.7 Baso % (Auto) 0.7 Absolute Neuts (auto) 3.9 Absolute Lymphs (auto) 1.1 Absolute Monos (auto) 0.4 Absolute Eos (auto) 0.2 Absolute Basos (auto) 0.0 Seg Neutrophils % 69.0 Sodium 137.7 Potassium 4.4 Chloride 102 Carbon Dioxide 27 Anion Gap 9 BUN 9 Creatinine 0.57 Est GFR ( Amer) > 60 Est GFR (MDRD) Non-Af > 60 Glucose 261 H Calcium 9.6 Total Bilirubin 0.6 Direct Bilirubin 0.2 Neonat Total Bilirubin Not Reportable Neonat Direct Bilirubin Not Reportable Neonat Indirect Bili Not Reportable AST 59 H ALT 53 Alkaline Phosphatase 182 H Creatine Kinase 56 CK-MB (CK-2) 1.00 Troponin I < 0.012 NT-Pro-B Natriuret Pep 3530 H Total Protein 6.5 Albumin 3.9 TSH Free T4 Urine Color Urine Appearance Urine pH Ur Specific [place] Urine Protein Urine Glucose (UA) Urine Ketones Urine Blood Urine Nitrite Urine Bilirubin Urine Urobilinogen Ur Leukocyte Esterase Urine WBC (Auto) Squamous Epi Cells Auto Urine Ascorbic Acid 06/09/19 06/09/19 14:10 14:50 WBC RBC Hgb Hct MCV MCH MCHC RDW Plt Count Lymph % (Auto) Moody % (Auto) Eos % (Auto) Baso % (Auto) Absolute Neuts (auto) Absolute Lymphs (auto) Absolute Monos (auto) Absolute Eos (auto) Absolute Basos (auto) Seg Neutrophils % Sodium Potassium Chloride Carbon Dioxide Anion Gap BUN Creatinine Est GFR ( Amer) Est GFR (MDRD) Non-Af Glucose Calcium Total Bilirubin Direct Bilirubin Neonat Total Bilirubin Neonat Direct Bilirubin Neonat Indirect Bili AST ALT Alkaline Phosphatase Creatine Kinase CK-MB (CK-2) Troponin I NT-Pro-B Natriuret Pep Total Protein Albumin TSH 3.62 Free T4 1.36 Urine Color STRAW Urine Appearance CLEAR Urine pH 5.0 Ur Specific [place] 1.025 Urine Protein NEGATIVE Urine Glucose (UA) 50 H Urine Ketones NEGATIVE Urine Blood NEGATIVE Urine Nitrite NEGATIVE Urine Bilirubin NEGATIVE Urine Urobilinogen NEGATIVE Ur Leukocyte Esterase TRACE H Urine WBC (Auto) 0 Squamous Epi Cells Auto 1 Urine Ascorbic Acid NEGATIVE - Vital Signs Vital signs: Temp Pulse Resp BP Pulse Ox 97.9 F 63 22 H 141/98 H 95 06/09/19 13:35 06/09/19 13:35 06/09/19 15:01 06/09/19 15:01 06/09/19 15:01 - Laboratory Result Diagrams: 06/09/19 14:10 06/09/19 14:10 Laboratory results interpreted by me: 06/09/19 06/09/19 06/09/19 14:10 14:10 14:10 RDW 15.5 H Glucose 261 H AST 59 H Alkaline Phosphatase 182 H NT-Pro-B Natriuret Pep 3530 H Urine Glucose (UA) Ur Leukocyte Esterase 06/09/19 14:50 RDW Glucose AST Alkaline Phosphatase NT-Pro-B Natriuret Pep Urine Glucose (UA) 50 H Ur Leukocyte Esterase TRACE H - EKG Interpretation by Me Additional EKG results interpreted by me: EKG demonstrates atrial fibrillation with a ventricular rate of 120 bpm, left axis deviation, QTC 444 ms, no ST elevation. This is compared with a prior EKG from 03/06/2019, and actually appears improved, with the exception of elevated heart rate today. Discharge - Discharge Clinical Impression: Atrial fibrillation with RVR Acute on chronic heart failure Qualifiers: Heart failure type: unspecified Qualified Code(s): I50.9 - Heart failure, unspecified Condition: Stable Disposition: HOME, SELF-CARE Instructions: Congestive Heart Failure ([facility]) Additional Instructions: Please follow-up with your primary care physician, call for an appointment tomorrow, take the prescribed metoprolol, 75 mg, which is 1-1/2 tablets, daily, and I would take this in the evening, and take the Lasix in the morning, I want you to take the Lasix for 10 days, and then discontinue it, and follow-up with her primary care to discuss if you need to be on a lower dose on a regular basis. Prescriptions: Furosemide [Lasix] 40 mg PO DAILY #10 tablet Metoprolol Succinate [Toprol Xl 50 mg Tab.sr] 75 mg PO DAILY #30 tab.sr.24h Referrals: DENA SAHA FNP-C [Primary Care Provider] - Follow up in 3-5 days
[2019-06-09] MEDS ORDERED: METOPROLOL TARTRATE PF/INJ 5 MG/5 ML SDV IV ONE (14:20)
[2019-06-09] MEDS ORDERED: FUROSEMIDE INJ/PF 20 MG/2 ML SDV IV ONE (14:20)
[2019-06-09 14:27] LABS: ABSOLUTE EOSINOPHILS # (AUTO) 0.2 10^3/uL (0.0-0.6); ABSOLUTE LYMPHOCYTES (AUTO) 1.1 10^3/uL (0.5-4.7); ABSOLUTE MONOCYTES (AUTO) 0.4 10^3/uL (0.1-1.4); ABSOLUTE NEUT (AUTO) 3.9 10^3/uL (1.7-8.2); BASOPHILS % (AUTO) 0.7 % (0-2); EOSINOPHILS % (AUTO) 2.7 % (0-6); HEMATOCRIT 38.5 % (36.0-47.0); HEMOGLOBIN 12.7 g/dL (12.0-15.5); LYMPHOCYTES % (AUTO) 19.9 % (13-45); MEAN CORPUSCULAR HEMOGLOBIN 30.6 pg (27.0-33.4); MEAN CORPUSCULAR HGB CONC 33.1 g/dL (32.0-36.0); MEAN CORPUSCULAR VOLUME 93 fl (80-97); MONOCYTES % (AUTO) 7.7 % (3-13); PLATELET COUNT 198 10^3/uL (150-450); RED BLOOD COUNT 4.16 10^6/uL (3.72-5.28); RED CELL DISTRIBUTION WIDTH 15.5 % (11.5-14.0); TOTAL CELLS COUNTED % (AUTO) 100 %; WHITE BLOOD COUNT 5.7 10^3/uL (4.0-10.5)
[2019-06-09 14:41] LABS: ALBUMIN 3.9 g/dL (3.5-5.0); ALKALINE PHOSPHATASE 182 U/L (38-126); ANION GAP 9 (5-19); ASPARTATE AMINO TRANSFERASE 59 U/L (14-36); BILIRUBIN,DIRECT 0.2 mg/dL (0.0-0.4); BILIRUBIN,TOTAL 0.6 mg/dL (0.2-1.3); BLOOD UREA NITROGEN 9 mg/dL (7-20); CALCIUM 9.6 mg/dL (8.4-10.2); CARBON DIOXIDE 27 mmol/L (22-30); CHLORIDE 102 mmol/L (98-107); CREATINE KINASE 56 U/L (30-135); GLUCOSE 261 mg/dL (75-110); POTASSIUM 4.4 mmol/L (3.6-5.0); TOTAL PROTEIN 6.5 g/dL (6.3-8.2)
[2019-06-09 14:55] LABS: NT PRO BNP 3530 pg/mL (5-900)
[2019-06-09 15:01] LABS: TROPONIN I < 0.012 ng/mL
[2019-06-09 15:09] LABS: APPEARANCE,URINE CLEAR; BILIRUBIN,URINE NEGATIVE (NEGATIVE); COLOR,URINE STRAW; GLUCOSE, URINE 50 mg/dL (NEGATIVE); KETONES,URINE NEGATIVE (NEGATIVE); LEUKOCYTE ESTERASE,URINE TRACE (NEGATIVE); NITRITE,URINE NEGATIVE (NEGATIVE); PROTEIN,URINE NEGATIVE (NEGATIVE); URINE SPECIFIC GRAVITY 1.025; UROBILINOGEN,URINE NEGATIVE mg/dL (<2.0)
[2019-06-09] MEDS ORDERED: METOPROLOL SUCCINATE 50 MG TAB.SR.24H PO ONE (15:23)
[2019-06-09 16:05] LABS: FREE T4 (FREE THYROXINE) 1.36 ng/dL (0.78-2.19)
[2019-06-09 16:19] LABS: THYROID STIMULATING HORMONE 3.62 uIU/mL (0.47-4.68)
[2019-06-09 17:16] VITALS: BP 116/103
--- NOTE | 2019-06-10 19:11 | EKG REPORT ---
SEVERITY:- ABNORMAL ECG - ATRIAL FIBRILLATION, V-RATE 98-123 BORDERLINE R WAVE PROGRESSION, ANTERIOR LEADS NONSPECIFIC T ABNORMALITIES, ANT-LAT LEADS : Confirmed by: Marissa Adkins MD 10-Jun-2019 19:10:14
== END 2019-06-09 17:16 | disposition home or self-care (01) ==
LOC: ER 13:23
DX: I50.9 Heart failure, unspecified (principal); I48.91 Unspecified atrial fibrillation; I11.0 Hypertensive heart disease with heart failure; R06.02 Shortness of breath; R07.9 Chest pain, unspecified; R00.2 Palpitations; Z79.899 Other long term (current) drug therapy; Z79.01 Long term (current) use of anticoagulants; Z95.2 Presence of prosthetic heart valve; E11.9 Type 2 diabetes mellitus without complications
CPT/HCPCS: 93005; 99285; 96374; 96375; 36415; 84439; 82553; 82550; 84443; 85025; 80053; 81001; 84484; 83880; 93010; J1940; J3490

== ENCOUNTER → 2019-06-09 | Outpatient (CLI) | payer OTHER ==
--- NOTE | 2019-06-09 11:43 | RADIOLOGY REPORT (SQ) ---
EXAM DESCRIPTION: CTA CHEST COMPLETED DATE/TIME: 06/09/2019 11:32 am REASON FOR STUDY: SHORTNESS OF BREATH R06.02 SHORTNESS OF BREATH COMPARISON: 01/22/2018 TECHNIQUE: CT scan of the chest performed using helical scanning technique with dynamic intravenous contrast injection. Images reviewed with lung, soft tissue and bone windows. Reconstructed coronal and sagittal MPR images reviewed. Additional 3 dimensional post-processing performed to develop Maximal Intensity Projection images (RI P). All images stored on PACS. All CT scanners at this facility use dose modulation, iterative reconstruction, and/or weight based d osing when appropriate to reduce radiation dose to as low as reasonably achievable (ALARA). [facility]: Dose Right [facility]: CareDose [facility]: Dose Right [facility]: Teradose 4D [facility]: Socset. CONTRAST TYPE AND DOSE: 50 mL Omnipaque 350 Contrast bolus optimized for the pulmonary arteries. Not diagnostic for the aorta. RENAL FUNCTION: 0.5 RADIATION DOSE: CT Rad equipment meets quality standard of care and radiation dose reduction techniq ues were employed. CTDIvol: 6.8 - 11.3 mGy. DLP: 284 mGy-cm. . LIMITATIONS: None. FINDINGS: LUNGS AND PLEURA: There is a moderate size right pleural effusion. There is a small left effusion. No consolidation. There are bilateral ground-glass opacities which may represent pulmonar y edema. AORTA AND GREAT VESSELS: No aneurysm. Contrast bolus not optimized for the aorta. HEART: No pericardial effusion. No significant coronary artery calcifications. PULMONARY ARTERIES: No emboli visualized in the main pulmonary arteries or the segmental branches. HILAR AND MEDIASTINAL STRUCTURES: No identified masses or abnormal nodes. HARDWARE: None in the chest. UPPER ABDOMEN: There is significant reflux into the hepatic veins consistent with right-sided heart f ailure. THYROID AND OTHER SOFT TISSUES: No masses. No adenopathy. BONES: No acute or significant finding. 3D MIPS: Confirm above findings. OTHER: No other significant finding. IMPRESSION: Bilateral pleural effusions right greater than left. Bilateral ground-glass opacities m ost likely pulmonary edema. No pulmonary emboli. There is reflux into the hepatic veins consistent with right-sided heart failure. COMMENT: Quality ID # [id number]: Final reports with documentation of one or more dose reduction techniques (e.g., Automated exposure control, adjustment of the mA and/or kV according to patient size, use of iterative reconstruction technique) TECHNICAL DOCUMENTATION: JOB ID: [id number] [employer]- All Rights Reserved Reading location - IP/workstation name: [email or web address]
== END ==
LOC: RAD 10:48
PROVIDERS: ATTEND Nurse Practitioner Family
DX: R06.02 Shortness of breath (principal)
CPT/HCPCS: 71275; 82565

== ENCOUNTER 2019-06-22 21:01 | Emergency (ER) | payer OTHER ==
[2019-06-22] MEDS ORDERED: LORAZEPAM 1 MG TABLET PO ONE (21:04)
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
[2019-06-22 21:20] LABS: ABSOLUTE EOSINOPHILS # (AUTO) 0.1 10^3/uL (0.0-0.6); ABSOLUTE LYMPHOCYTES (AUTO) 0.8 10^3/uL (0.5-4.7); ABSOLUTE MONOCYTES (AUTO) 0.4 10^3/uL (0.1-1.4); ABSOLUTE NEUT (AUTO) 4.2 10^3/uL (1.7-8.2); BASOPHILS % (AUTO) 0.8 % (0-2); EOSINOPHILS % (AUTO) 1.1 % (0-6); HEMATOCRIT 39.2 % (36.0-47.0); HEMOGLOBIN 12.8 g/dL (12.0-15.5); LYMPHOCYTES % (AUTO) 14.7 % (13-45); MEAN CORPUSCULAR HEMOGLOBIN 30.3 pg (27.0-33.4); MEAN CORPUSCULAR HGB CONC 32.7 g/dL (32.0-36.0); MEAN CORPUSCULAR VOLUME 93 fl (80-97); MONOCYTES % (AUTO) 6.6 % (3-13); PLATELET COUNT 175 10^3/uL (150-450); RED BLOOD COUNT 4.23 10^6/uL (3.72-5.28); RED CELL DISTRIBUTION WIDTH 15.4 % (11.5-14.0); SEGMENTED NEUTROPHILS % (AUTO) 76.8 % (42-78); TOTAL CELLS COUNTED % (AUTO) 100 %; WHITE BLOOD COUNT 5.5 10^3/uL (4.0-10.5)
[2019-06-22 21:28] LABS: INTERNATIONAL RATION (INR) 2.24; PROTHROMBIN TIME 25.1 SEC (11.4-15.4)
[2019-06-22 21:53] LABS: ANION GAP 15 (5-19); BLOOD UREA NITROGEN 6 mg/dL (7-20); CARBON DIOXIDE 19 mmol/L (22-30); CHLORIDE 96 mmol/L (98-107); POTASSIUM 4.4 mmol/L (3.6-5.0)
[2019-06-22 22:06] LABS: GLUCOSE 665 mg/dL (75-110)
[2019-06-22] MEDS ORDERED: INSULIN REG, HUMAN 100 UNIT/ML 3 ML VIAL (PYX) SUBCUT ONE (22:06)
[2019-06-22 22:40] LABS: APPEARANCE,URINE CLEAR; BILIRUBIN,URINE NEGATIVE (NEGATIVE); COLOR,URINE STRAW; GLUCOSE, URINE >=500 mg/dL (NEGATIVE); KETONES,URINE 80 mg/dL (NEGATIVE); LEUKOCYTE ESTERASE,URINE NEGATIVE (NEGATIVE); NITRITE,URINE NEGATIVE (NEGATIVE); PROTEIN,URINE NEGATIVE (NEGATIVE); URINE SPECIFIC GRAVITY 1.032; UROBILINOGEN,URINE NEGATIVE mg/dL (<2.0)
[2019-06-22] MEDS ORDERED: NORMAL SALINE 500 ML IV ONE (23:44)
[2019-06-23] MEDS ORDERED: METOPROLOL TARTRATE 25 MG TABLET PO ONE (01:26)
[2019-06-23 01:35] LABS: ANION GAP 10 (5-19); BLOOD UREA NITROGEN 6 mg/dL (7-20); CALCIUM 9.5 mg/dL (8.4-10.2); CARBON DIOXIDE 26 mmol/L (22-30); CHLORIDE 101 mmol/L (98-107); GLUCOSE 292 mg/dL (75-110); POTASSIUM 3.5 mmol/L (3.6-5.0)
[2019-06-23] MEDS ORDERED: POTASSIUM CHLORIDE 10 MEQ CAPSULE.ER PO ONE (01:40)
[2019-06-23] MEDS ORDERED: INSULIN REG, HUMAN 100 UNIT/ML 3 ML VIAL (PYX) SUBCUT ONE (01:40)
[2019-06-23] MEDS ORDERED: NORMAL SALINE 500 ML IV ONE (01:45)
[2019-06-23 03:46] VITALS: BP 111/76
--- NOTE | 2019-06-25 18:56 | EKG REPORT ---
SEVERITY:- ABNORMAL ECG - ATRIAL FIBRILLATION, V-RATE 60-97 BORDERLINE PROLONGED QT INTERVAL : Confirmed by: Sharmila Sapp 25-Jun-2019 18:56:23
== END 2019-06-23 03:23 | disposition home or self-care (01) ==
LOC: ER 21:01
DX: E11.65 Type 2 diabetes mellitus with hyperglycemia (principal); I48.2 Chronic atrial fibrillation; F41.9 Anxiety disorder, unspecified; I10 Essential (primary) hypertension; Z79.899 Other long term (current) drug therapy; Z79.01 Long term (current) use of anticoagulants
CPT/HCPCS: 93005; 99284; 96360; 96361; 36415; 82962; 85025; 85610; 80048; 81001; 93010; J1815 ×2; J7040